=== PATIENT | female | born 1985 | race Caucasian/White ===

== ENCOUNTER 2019-07-02 11:10 | Day surgery (SDC) | payer MEDICAID ==
[~2019-07-02] VITALS: Ht 165.1 cm; Wt 63.5 kg
[~2019-07-02 11:10] MED LIST: FERROUS SULFAT325 MG PO; IBUPROFEN600 MG PO; PAXIL40 MG PO; PERCOCET 10/3251 TA1 PO; PRENATAL COMPLE1 TAB PO; SYNTHROID25 MCG PO; TUMS500 MG PO
[2019-07-02 11:42] LABS: HEMATOCRIT 38.4 % (36.0-48.0); MCH 29.6 pg (26.0-34.0); MCHC 33.9 g/dL (31.0-37.0); MCV 87.5 fL (80.0-100.0); MEAN PLATELET VOLUME 8.4 fL (7.4-10.4); RBC 4.39 10x6/uL (4.00-5.40); WBC 4.5 10x3/uL (4.8-10.8)
[2019-07-02 11:50] VITALS: BP 95/67; Ht 165.1 cm; Wt 63.5 kg
--- NOTE | 2019-07-02 15:28 | OP ---
PATIENT NAME: FREDRICK BOB MEDICAL RECORD: [id number] :83 LOCATION:[facility] ADMISSION DATE: SURGEON: CASTILLO BARNETT MD DATE OF OPERATION: 07/02/2019 SURGEON: Castillo Barnett MD ANESTHESIA: General anesthesia by Salina Covington CRNA. DIAGNOSIS: Right lower pole 7 mm stone. PROCEDURE: Cystoscopy, right ureteral stent insertion 6-Peruvian x 24 cm with string attached, right extracorporeal shock wave lithotripsy (ESWL) times 1000 shocks. FINDINGS: Radiodense renal stone, which is soft and it broke up readily. CLINICAL HISTORY: This is a 34-year-old female, who has occasional flank pain and nausea. A KUB shows a right 7 mm lower pole stone. CT scan of the abdomen and pelvis also confirms that there are no stones on the left side. There is a 7 mm lower pole stone. There is no hydronephrosis. There is a left ovarian cyst visible. She had kidney stones in the past when she was . SHE IS ALLERGIC TO AMOXICILLIN, PENICILLIN, MACROBID AND KEFLEX. She was given Levaquin IV consumer advocate to the OR. We will insert a right ureteral stent and treat her simultaneously with right ESWL. DESCRIPTION OF PROCEDURE: The patient was placed on the treatment table. Fluoroscopy confirmed that the radiodense stone was visible. She was then given induction of general anesthesia. She was placed into lithotomy position and prepped and draped. The stone was targeted in 2 planes and treatment gone underway. In the meantime, we performed cystoscopy. She has single ureteral orifices on each side with no bladder tumors seen. A Sensor wire was placed into the right ureteral orifice and placed up into the right renal pelvis. Over the wire, we inserted the stent. Once the stent was in correct position, the wire was withdrawn entirely. The distal end of the stent was pushed into the bladder using a pusher. By the time, the stent was inserted, we had already reached 800 shocks and the stone had largely broken up. We gave her 200 more shocks and ended the procedure. The stone had turned into a large cloud of radiodensity. The bladder was emptied through the scope and the scope was removed. The string on the distal end of the stent was maintained. It was taped to the suprapubic area with a piece of Tegaderm. I will see her back in 2 weeks' time with a KUB. If there was no further visible stone material on the KUB, then she will have the stent removed at that office visit. TRANSINT:[id number] Voice Confirmation ID: [id number] DOCUMENT ID: [id number] CASTILLO BARNETT MD at 1528 CC: [id number] DICTATION DATE: 07/02/19 1341 JURY CONSULTANT: 07/02/19 1525 REG [place] [id number] [place] [id number]
== END 2019-07-02 15:00 | disposition home or self-care (01) ==
LOC: D.OPS 11:10 → D.PAN 11:45 → D.OPS 11:50 → D.PAN 11:50 → D.OPS 13:15 → D.PAN 13:45 → D.OPS 13:45
PROVIDERS: Anesthesiology; ATTEND Urology
DX: N20.0 Calculus of kidney (principal)